=== PATIENT | female | born 1965 | race African-American/Black ===

== ENCOUNTER 2022-02-28 18:07 | Inpatient (IN) | payer OTHER ==
[~2022-02-28] VITALS: Ht 172.7 cm; Wt 97.5 kg
[2022-02-28] MEDS ORDERED: IBUPROFEN 800MG TABLET PO ONE (21:00)
[2022-02-28] MEDS ORDERED: MORPHINE SULFATE 4 MG/ML CPJ (NOT FOR IM USE) IV ONE ×2 (21:30→23:00)
[2022-02-28 22:22] LABS: BASOPHILS % 0.3 % (0.0-2.0); HEMOGLOBIN. 12.5 g/dL (12.0-16.0); LYMPHOCYTES % 12.9 % (20.0-50.0); MEAN CORPUSCULAR HEMOGLOBIN 32.1 pg (28.0-32.0); MEAN CORPUSCULAR VOLUME 97.4 fL (81.0-99.0); MEAN PLATELET VOLUME 8.3 fl (7.4-10.4); MONOCYTES % 5.7 % (2.0-8.0); NEUTROPHILS % 81.1 % (40.0-76.0); PLATELET 230 x1000/uL (130-400); RED CELL DISTRIBUTION WIDTH 13.3 % (11.6-14.6)
[2022-02-28 22:27] LABS: CHLORIDE 104 mEq/L (98-107)
[2022-02-28] MEDS ORDERED: PROPOFOL 200MG/20ML VIAL IV ONE (22:45)
[2022-03-01] MEDS ORDERED: SODIUM CHLORIDE 0.9% 1,000 ML IV ONE (01:00)
[2022-03-01] MEDS ORDERED: MORPHINE SULFATE 4 MG/ML CPJ (NOT FOR IM USE) IV NR (01:00)
[2022-03-01] MEDS ORDERED: IOHEXOL-350 100 ML BOTTLE ONE (04:30)
[2022-03-01 08:00] VITALS: BP 121/70
[2022-03-01 10:33] VITALS: BP 121/70
[2022-03-01] MEDS ORDERED: NALOXONE HCL 0.4MG/ML VIAL IV PRN (10:45)
[2022-03-01] MEDS ORDERED: ONDANSETRON HCL 4MG/2ML INJ IV PRN (10:45)
[2022-03-01] MEDS ORDERED: ACETAMINOPHEN 325MG TABLET PO PRN (10:45)
[2022-03-01] MEDS ORDERED: HYDROCODONE/ACETAMINOPHEN 5/325MG TABLET PO PRN (10:45)
[2022-03-01] MEDS ORDERED: BUTA-288 MT (11:17)
[2022-03-01] MEDS ORDERED: HYDR50TA PO (11:17)
[2022-03-01] MEDS ORDERED: BENA-8 PO (11:17)
[2022-03-01 12:00] VITALS: BP 122/64
[2022-03-01 16:25] VITALS: BP 107/61
[2022-03-01 18:49] VITALS: BP 107/61
== END 2022-03-01 19:15 | disposition home or self-care (01) | DRG 563 ==
LOC: ER 18:07 → EDBEDREQDT 03-01 02:16 → EDBEDREQ 03-01 02:16 → EDBEDREQTM 03-01 02:16 → ENRESERV 03-01 08:35 → 6EST 03-01 09:32
PROVIDERS: ADMIT Internal Medicine; ATTEND Internal Medicine
PROC: 0QSFXZZ Reposition Left Patella, External Approach (ICD-10-PCS; principal; 2022-02-28)
PROC: 2W3MX1Z Immobilization of Left Lower Extremity using Splint (ICD-10-PCS; 2022-02-28)
DX: S83.115A Anterior dislocation of proximal end of tibia, left knee, initial encounter (principal); E66.9 Obesity, unspecified; S83.125A Posterior dislocation of proximal end of tibia, left knee, initial encounter; Z20.822 Contact with and (suspected) exposure to COVID-19; W18.39XA Other fall on same level, initial encounter; I10 Essential (primary) hypertension; Z68.32 Body mass index [BMI] 32.0-32.9, adult; Y93.89 Activity, other specified; Y92.89 Other specified places as the place of occurrence of the external cause; Y99.8 Other external cause status
CPT/HCPCS: 36415; 73560; 73706; 80053; 85025; 87426; 99285; C1893; J2270; J2704; L1830; Q9967